=== PATIENT | female | born 1990 | race Caucasian/White ===

== ENCOUNTER 2018-05-07 04:15 | Emergency (ER) | payer SELFPAY ==
[~2018-05-07] VITALS: Ht 162.6 cm; Wt 63.5 kg
[2018-05-07 04:15] VITALS: BP 144/95
--- NOTE | 2018-05-07 04:15 | NUR ---
PT SUSAN BEEBE, PREBOOK. TAKEN TO CHAIR E
--- NOTE | 2018-05-07 04:25 | NUR ---
Dr. Hughes evaluating patient
--- NOTE | 2018-05-07 04:30 | NUR ---
Patient discharged with v/s stable. Written and verbal after care instructions given and explained. Patient verbalized understanding. Police with in custody. All questions addressed prior to discharge. Advised to follow up with PMD.
== END 2018-05-07 04:30 ==
LOC: MED 04:15
DX: R03.0 Elevated blood-pressure reading, without diagnosis of hypertension (principal); F10.10 Alcohol abuse, uncomplicated; Z02.89 Encounter for other administrative examinations; V89.2XXA Person injured in unspecified motor-vehicle accident, traffic, initial encounter; Y93.89 Activity, other specified; Y92.89 Other specified places as the place of occurrence of the external cause; Y99.8 Other external cause status
CPT/HCPCS: 99283